=== PATIENT | male | born 1995 | race Caucasian/White ===

== ENCOUNTER 2016-10-17 18:01 | Emergency (ER) | payer OTHER, MEDICAID ==
[~2016-10-17] VITALS: Ht 175.3 cm; Wt 69.6 kg
[2016-10-17 18:02] VITALS: BP 108/72
[2016-10-17] MEDS ORDERED: TETRACAINE 0.5% OPHTH SOLN 4ML OU ONE (18:30)
[2016-10-17] MEDS ORDERED: FLUORESCEIN OPHTH 1 MG STRIP OS ONE (18:30)
[2016-10-17] MEDS ORDERED: CIPROFLOXACIN 0.3% OPHTH SOLN 2.5ML OD ONE (18:45)
== END 2016-10-17 18:56 | disposition home or self-care (01) ==
LOC: M ED 18:01
DX: S05.01XA Injury of conjunctiva and corneal abrasion without foreign body, right eye, initial encounter (principal); W55.89XA Other contact with other mammals, initial encounter; Y92.099 Unspecified place in other non-institutional residence as the place of occurrence of the external cause; Y93.89 Activity, other specified; Y99.9 Unspecified external cause status

== ENCOUNTER → 2017-03-17 | Outpatient (CLI) | payer OTHER ==
[2017-03-17 14:46] LABS: BASO # 0.1 10^3/uL (0.0-0.2); BASO % 0.7 % (0.0-1.0); EOS # 0.3 10^3/uL (0.0-0.50); EOS % 4.9 % (0.0-3.0); IMMATURE GRANULOCYTE % 0.1 % (0-0); LYMPH # 2.8 10^3/uL (1.5-6.5); LYMPH % 40.6 % (24.0-44.0); MEAN CORPUSCULAR HEMOGLOBIN 30.7 pg (27.0-33.0); MEAN CORPUSCULAR HGB CONC 33.7 g/dl (32.0-36.5); MONO # 0.6 10^3/uL (0.0-0.8); MONO % 9.3 % (0.0-5.0); NEUTROPHILS % 44.4 % (36.0-66.0); PLATELET COUNT, AUTOMATED 215 10^3/uL (150-450); RED CELL DISTRIBUTION WIDTH 12.9 % (11.5-14.5); WHITE BLOOD COUNT 6.8 10^3/uL (4.0-10.0)
[2017-03-17 15:08] LABS: ALBUMIN/GLOBULIN RATIO 1.29 (1.00-1.93); ALKALINE PHOSPHATASE 66 U/L (45-117); ALT/SGPT 19 U/L (12-78); ANION GAP 6 MEQ/L (8-16); AST/SGOT 17 U/L (7-37); BILIRUBIN,TOTAL 0.4 MG/DL (0.2-1.0); BLOOD UREA NITROGEN 10 MG/DL (7-18); CALCIUM LEVEL 8.9 MG/DL (8.5-10.1); CARBON DIOXIDE LEVEL 30 MEQ/L (21-32); CHLORIDE LEVEL 107 MEQ/L (98-107); CREATININE FOR GFR 1.02 MG/DL (0.70-1.30); GLOMERULAR FILTRATION RATE > 60.0 (>60); GLUCOSE, FASTING 87 MG/DL (70-105); POTASSIUM SERUM 4.7 MEQ/L (3.5-5.1); SODIUM LEVEL 143 MEQ/L (136-145); TOTAL PROTEIN 7.1 GM/DL (6.4-8.2)
== END ==
LOC: M WUC 11:12
PROVIDERS: ATTEND Psychiatry & Neurology Child & Adolescent Psychiatry
DX: Z13.9 Encounter for screening, unspecified (principal); F33.0 Major depressive disorder, recurrent, mild

== ENCOUNTER → 2017-03-17 | Outpatient (REF) | payer OTHER, MEDICAID | LOC: M LAB REF 17:21 | PROVIDERS: ATTEND Nurse Practitioner Adult Health | DX: F33.0 Major depressive disorder, recurrent, mild (principal) ==